=== PATIENT | male | born 1965 | race Caucasian/White ===

== ENCOUNTER 2023-01-19 14:55 | Emergency (ER) | payer OTHER ==
[~2023-01-19] VITALS: Ht 175.3 cm; Wt 93.0 kg
[2023-01-19 15:09] VITALS: BP_SYST 175; PULSE 115; RESP 20; TEMP 98.3; O2SAT 96
[2023-01-19] MEDS ORDERED: KETOROLAC TROMETHAMINE 60 MG/2 ML VIAL IM ONE (16:00)
[2023-01-19 17:10] LABS: BILIRUBIN,URINE NEGATIVE (NEGATIVE); BLOOD, URINE 3+ (NEGATIVE); CLARITY/URINE CLEAR (CLEAR); COLOR,URINE YELLOW (YELLOW); GLUCOSE,URINE NEGATIVE (NEGATIVE); KETONES,URINE NEGATIVE (NEGATIVE); NITRITE, URINE NEGATIVE (NEGATIVE); PH,URINE 6.5 (5.0-8.0); PROTEIN URINE 1+ (NEGATIVE); UROBILINOGEN,URINE 0.2 (0.2-1.0)
[2023-01-19 17:17] LABS: LEUKOCYTE ESTERASE ,URINE 1+ (NEGATIVE)
[2023-01-19 17:18] LABS: BACTERIA,URINE FEW /HPF (None Seen); MUCUS,URINE None Seen /LPF (None Seen)
[2023-01-19] MEDS ORDERED: cefTRIAXone 1 GM VIAL IM ONE (17:30)
[2023-01-19] MEDS ORDERED: SULF1TAB48 PO (17:46)
[2023-01-19] MEDS ORDERED: IBUP-1971 PO (17:46)
[2023-01-19 18:37] VITALS: BP_SYST 147; PULSE 95; RESP 21; TEMP 98.1; O2SAT 97
== END 2023-01-19 18:34 | disposition home or self-care (01) ==
LOC: SED 14:55
DX: R33.9 Retention of urine, unspecified (principal); R39.198 Other difficulties with micturition; Z79.899 Other long term (current) drug therapy
CPT/HCPCS: 99284; 81001; 87086; 96372; 81000; 81015; J0696; J1885